=== PATIENT | female | born 1950 | race Caucasian/White ===

== ENCOUNTER 2018-11-23 07:11 | Emergency (ER) | payer MEDICARE ==
[2018-11-23 07:25] VITALS: TEMP 97.7
[2018-11-23 08:48] LABS: BASO # 0.02 K/mm3 (0.0-2.0); BASO % 0.3 % (0.0-3.0); EOS # 0.1 (0.0-0.7); EOS % 1.2 % (1.5-5.0); HEMOGLOBIN 10.6 g/dL (12.0-16.0); LYMPH # 1.8 (1.2-3.4); LYMPH % 26.2 % (22.0-35.0); MEAN CELL VOLUME 79.7 fl (80.0-105.0); MEAN CORPUSCULAR HEMOGLOBIN 26.2 pg (25.0-35.0); MEAN CORPUSCULAR HGB CONC 32.9 g/dl (31.0-37.0); MEAN PLATELET VOLUME 9.6 fl (7.0-11.0); MONO # 0.4 (0.1-0.6); MONO % 6.1 % (1.0-6.0); RBC 4.04 10^6/uL (3.5-6.1); RED CELL DISTRIBUTION WIDTH 14.1 % (11.5-14.5); WHITE BLOOD COUNT 6.9 10^3/uL (4.5-11.0)
[2018-11-23 09:01] LABS: ALBUMIN 4.2 g/dL (3.0-4.8); CALCIUM 10.9 mg/dL (8.4-10.5)
--- NOTE | 2018-11-23 09:39 | ED PDOC ---
Arrival/HPI - General Chief Complaint: Lower Extremity Problem/Injury Time Seen by Provider: 11/23/18 07:14 Historian: Patient - History of Present Illness Narrative History of Present Illness (Text): 11/23/18 07:14 Nivia Man is a 68 year old female, with a past medical history of hypertension controlled with medication, who presents to the emergency department complaining of left ankle swelling since yesterday. Patient informs pain is worsened when ambulating. Patient notes history of this pain for around 1 year. Patient reports seeking medical attention but does not remember what was said. Patient denies trauma, fall, calf tenderness, headache, fever, chills, cough, nausea, vomiting, diarrhea, visual changes, neck pain, dysuria, hematuria, frequency, bowel/bladder incontinence or retention, abdominal pain, or any other complaint. Time/Duration: 24 hours Symptom Onset: Gradual Symptom Course: Unchanged Activities at Onset: Light Context: Home Past Medical History - Provider Review Nursing Documentation Reviewed: Yes - Infectious Disease Hx of Infectious Diseases: None - Cardiac Hx Cardiac Disorders: Yes Hx Hypertension: Yes - Pulmonary Hx Respiratory Disorders: No - Neurological Hx Neurological Disorder: No - HEENT Hx HEENT Disorder: No - Renal Hx Renal Disorder: No - Endocrine/Metabolic Hx Endocrine Disorders: No - Hematological/Oncological Hx Blood Disorders: No - Integumentary Hx Dermatological Disorder: No - Musculoskeletal/Rheumatological Hx Musculoskeletal Disorders: No - Gastrointestinal Hx Gastrointestinal Disorders: No - Genitourinary/Gynecological Hx Genitourinary Disorders: No - Psychiatric Hx Psychophysiologic Disorder: No Hx Substance Use: No - Anesthesia Hx Anesthesia: No Family/Social History - Physician Review Nursing Documentation Reviewed: Yes Family/Social History: No Known Family HX Smoking Status: Never Smoked Hx Alcohol Use: No Hx Substance Use: No Allergies/Home Meds Allergies/Adverse Reactions: Allergies No Known Allergies Allergy (Verified 11/23/18 07:21) Home Medications: Home Meds Medication Instructions Recorded Confirmed amLODIPine [Norvasc] 10 mg PO DAILY 11/23/18 11/23/18 Review of Systems - Physician Review All systems were reviewed & negative as marked: Yes - Review of Systems Constitutional: absent: Fevers, Other Eyes: absent: Vision Changes Respiratory: absent: Cough Gastrointestinal: absent: Abdominal Pain, Diarrhea, Nausea, Vomiting, Other (bowel incontinence) Genitourinary Female: absent: Dysuria, Frequency, Hematuria, Other (urinary incontinence) Musculoskeletal: Joint Swelling (left ankle swelling), Other (left ankle pain w/ambulation). absent: Neck Pain Physical Exam Vital Signs Reviewed: Yes Vital Signs Temp Pulse Resp BP Pulse Ox 11/23/18 07:24 97.7 F 60 18 146/80 98 Temperature: Afebrile Blood Pressure: Normal Pulse: Regular Respiratory Rate: Normal Appearance: Positive for: Well-Appearing, Non-Toxic, Comfortable Pain Distress: None Mental Status: Positive for: Alert and Oriented X 3 - Systems Exam Head: Present: Atraumatic, Normocephalic Pupils: Present: PERRL Extroacular Muscles: Present: EOMI Conjunctiva: Present: Normal Mouth: Present: Moist Mucous Membranes Neck: Present: Normal Range of Motion Respiratory/Chest: Present: Clear to Auscultation, Good Air Exchange. No: Respiratory Distress, Accessory Muscle Use Cardiovascular: Present: Regular Rate and Rhythm, Normal S1, S2. No: Murmurs Abdomen: No: Tenderness, Distention, Peritoneal Signs Back: Present: Normal Inspection Upper Extremity: Present: Normal Inspection. No: Cyanosis, Edema Lower Extremity: Present: NORMAL PULSES, Tenderness (left ankle tender to medial and lateral aspects), Temperature Abnormalties (left ankle warm to touch. ), Capillary Refill < 2 s. No: Edema Neurological: Present: GCS=15, CN II-XII Intact, Speech Normal Skin: Present: Warm, Dry, Normal Color. No: Rashes Psychiatric: Present: Alert, Oriented x 3, Normal Insight, Normal Concentration Medical Decision Making ED Course and Treatment: 11/23/18 09:38 Impression: Patient is a 68 year old female who presents to the emergency department complaining of left ankle swelling since yesterday. Patient reports pain is worsened when ambulating. Patient sought medical attention for current complaint but is unsure what was said. Plan: -- Left Ankle X-Ray 3 Views -- US Lower Extremities -- Labs -- Reassess and disposition Prior Visits: Notes and results from previous visits were reviewed. Progress Notes: - Lab Interpretations Lab Results: Total Bilirubin 0.5 mg/dL (0.2-1.3) 11/23/18 08:10 AST 26 U/L (14-36) 11/23/18 08:10 ALT 10 U/L (7-56) 11/23/18 08:10 Alkaline Phosphatase 130 U/L (38-126) H 11/23/18 08:10 Total Protein 8.3 g/dL (5.8-8.3) 11/23/18 08:10 Albumin 4.2 g/dL (3.0-4.8) 11/23/18 08:10 Globulin 4.1 gm/dL 11/23/18 08:10 Albumin/Globulin Ratio 1.0 (1.1-1.8) L 11/23/18 08:10 - RAD Interpretation Narrative RAD Interpretations (Text): 11/23/18 10:41 Left Lower Extremity US shows: FINDINGS: The visualized deep venous system of the left lower extremity is sonographically normal and compressible. Normal wave forms and augmentation are seen. There is no sonographic evidence for deep venous thrombosis in the visualized segments of the left lower extremity. IMPRESSION: 1. No sonographic evidence for deep venous thrombosis in the visualized segments of the left lower extremity. 11/23/18 11:01 Left Ankle X-Ray shows: FINDINGS: BONES: Normal. No fracture. JOINTS: Normal. No osteoarthritis. Ankle mortise maintained. Talar dome intact SOFT TISSUES: Normal. OTHER FINDINGS: None. IMPRESSION: Normal left ankle radiographs. 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 I have reviewed the chart and agree that the record accurately reflects my personal performance of the history, physical exam, medical decision making, and the department course for this patient. I have also personally directed, reviewed, and agree with the discharge instructions and disposition. Disposition/Present on Arrival - Present on Arrival Any Indicators Present on Arrival: No History of DVT/PE: No History of Uncontrolled Diabetes: No Urinary Catheter: No History of Decub. Ulcer: No History Surgical Site Infection Following: None - Disposition Have Diagnosis and Disposition been Completed?: Yes Diagnosis: Foot pain Disposition: HOME/ ROUTINE Disposition Time: 11:15 Patient Problems: Current Active Problems Problem Status Onset Foot pain Acute Condition: GOOD Discharge Instructions (ExitCare): Metatarsalgia (DC) Additional Instructions: NIVIA MAN, thank you for letting us take care of you today. The emergency medical care you received today was directed at your acute symptoms. If you were prescribed any medication, please fill it and take as directed. It may take several days for your symptoms to resolve. Return to the Emergency Department if your symptoms worsen, do not improve, or if you have any other problems. Please contact your doctor or call one of the physicians/clinics you have been referred to that are listed on the Patient Visit Information form that is included in your discharge packet. Bring any paperwork you were given at discharge with you along with any medications you are taking to your follow up visit. Our treatment cannot replace ongoing medical care by a primary care provider outside of the emergency department. Thank you for allowing the [facility] team to be part of your care today. Follow up with your Dr. Theodore (podiatry) this week for re-evaluation and further treatment. Prescriptions: traMADol [Ultram] 50 mg PO Q8 PRN #15 tab PRN Reason: Pain, Severe (8-10) Referrals: Ellen Theodore DPM [Staff Provider] - Follow up with primary Claudia Hazel MD [Primary Care Provider] - Follow up with primary Forms: [employer] (French)
--- NOTE | 2018-11-23 10:45 | US ---
PROCEDURE: Left lower extremity venous US HISTORY: Leg pain and swelling. Evaluate for DVT. PHYSICIAN(S): Kemar Pagan MD. TECHNIQUE: Duplex sonography and color-flow Doppler with graded compression were used to evaluate the deep venous system of the left lower extremity. FINDINGS: The visualized deep venous system of the left lower extremity is sonographically normal and compressible. Normal wave forms and augmentation are seen. There is no sonographic evidence for deep venous thrombosis in the visualized segments of the left lower extremity. IMPRESSION: 1. No sonographic evidence for deep venous thrombosis in the visualized segments of the left lower extremity.
--- NOTE | 2018-11-23 11:05 | RAD ---
Date of service: 11/23/2018 PROCEDURE: Left Ankle Radiographs. HISTORY: left ankle pain swelling COMPARISON: None available. TECHNIQUE: 3 views obtained. FINDINGS: BONES: Normal. No fracture. JOINTS: Normal. No osteoarthritis. Ankle mortise maintained. Talar dome intact SOFT TISSUES: Normal. OTHER FINDINGS: None. IMPRESSION: Normal left ankle radiographs.
--- NOTE | 2018-11-23 11:41 | CP.PCM.CON ---
History of Present Illness - History of Present Illness History of Present Illness: Podiatry consult note - Dr. Theodore 68F with pmhx of HTN seen and [place] [facility] [place]. States that she has had pain in her ankle since Friday. States the pain is constant and does not travel up or down the leg. States most of the pain is on the outside and inside of her ankle and she has pain whenever she moves her ankle up and down or in and out. States she has had similar pain in the past approximately one year ago. Denies n/v/f/c/sob/cp today and has no other complaints. PMHx: HTN PSHx: denies All: NKDA Past Patient History - Infectious Disease Hx of Infectious Diseases: None - Past Social History Smoking Status: Never Smoked - CARDIAC Hx Cardiac Disorders: Yes Hx Hypertension: Yes - PULMONARY Hx Respiratory Disorders: No - NEUROLOGICAL Hx Neurological Disorder: No - HEENT Hx HEENT Problems: No - RENAL Hx Chronic Kidney Disease: No - ENDOCRINE/METABOLIC Hx Endocrine Disorders: No - HEMATOLOGICAL/ONCOLOGICAL Hx Blood Disorders: No - INTEGUMENTARY Hx Dermatological Problems: No - MUSCULOSKELETAL/RHEUMATOLOGICAL Hx Musculoskeletal Disorders: No - GASTROINTESTINAL Hx Gastrointestinal Disorders: No - GENITOURINARY/GYNECOLOGICAL Hx Genitourinary Disorders: No - PSYCHIATRIC Hx Psychophysiologic Disorder: No Hx Substance Use: No - SURGICAL HISTORY Hx Surgeries: No - ANESTHESIA Hx Anesthesia: No Meds Home Medications: Home Medication List Medication Instructions Recorded Confirmed Type traMADol [Ultram] 50 mg PO Q8 PRN #15 tab 11/23/18 Rx Allergies/Adverse Reactions: Allergies Allergy/AdvReac Type Severity Reaction Status Date / Time No Known Allergies Allergy Verified 11/23/18 07:21 Physical Exam - Constitutional Appears: Non-toxic - Head Exam Head Exam: ATRAUMATIC - Extremities Exam Additional comments: LLE focused exam VASC: DP and PT pulses palpable; cap refill <3 seconds to all digits; temp gradient warm to warm; minimal edema noted to the ankle; pedal hairgrowth present DERM: no open lesions or wounds present; no erythema noted to the ankle; skin temp warm, no greater than contralateral ankle ORTHO: pain on palpation of the ankle; pain on ROM in all directions to the ankle; pain on palpation of sinus tarsi; MMT not assessed 2/2 guarding and pain NEURO: gross and protective sensation intact - Neurological Exam Neurological exam: Alert, Oriented x3 - Psychiatric Exam Psychiatric exam: Normal Affect, Normal Mood Results - Vital Signs Recent Vital Signs: Last Vital Signs Temp 97.7 F 11/23/18 07:24 Pulse 57 L 11/23/18 11:13 Resp 16 11/23/18 11:13 BP 116/69 11/23/18 11:13 Pulse Ox 100 11/23/18 11:13 - Labs Result Diagrams: 11/23/18 08:10 11/23/18 08:10 Labs: Laboratory Results - last 24 hr 11/23/18 11/23/18 08:10 08:10 WBC 6.9 RBC 4.04 Hgb 10.6 L Hct 32.2 L MCV 79.7 L MCH 26.2 MCHC 32.9 RDW 14.1 Plt Count 192 MPV 9.6 Neut % (Auto) 66.2 Lymph % (Auto) 26.2 [place] % (Auto) 6.1 H Eos % (Auto) 1.2 L Baso % (Auto) 0.3 Lymph # (Auto) 1.8 [place] # (Auto) 0.4 Eos # (Auto) 0.1 Baso # (Auto) 0.02 Absolute Neuts (auto) 4.54 ESR 90 H Sodium 141 Potassium 4.0 Chloride 108 H Carbon Dioxide 25 Anion Gap 12 BUN 24 H Creatinine 1.7 H Est GFR ( Amer) 36 Est GFR (Non-Af Amer) 30 Random Glucose 102 Calcium 10.9 H Total Bilirubin 0.5 AST 26 ALT 10 Alkaline Phosphatase 130 H Total Protein 8.3 Albumin 4.2 Globulin 4.1 Albumin/Globulin Ratio 1.0 L Assessment & Plan - Assessment and Plan (Free Text) Assessment: 68F with left ankle pain Plan: Patient seen and evaluated Discussed in detail with Dr. Serrato VSGaurav, absent leukocytosis, ESR 90 X-rays reviewed - no acute fractures or disclocations Venous duplex - negative DVT Discussed further imaging, patient amenable to MRI of left ankle Apply boot and encourage nonweightbearing to left ankle, crutch assistance if necessary RICE therapy discussed F/u with Dr. Theodore upon discharge and reevaluate pain, erythema, redness Instructed to return to the ED if pain increases or any severe redness and temperature changes appreciated at the ankle for further testing and treatment Oral abx per medicine Thank you for the consult, will follow with Dr. Theodore on - Date & Time Date: 11/23/18 Time: 11:48
[2018-11-23 13:11] VITALS: BP 112/64; PULSE 72; RESP 18; O2SAT 98
== END 2018-11-23 20:33 | disposition home or self-care (01) ==
LOC: ED 07:11
DX: M79.672 Pain in left foot (principal); I10 Essential (primary) hypertension
CPT/HCPCS: 73610; 80053; 85025; 85651; 86140; 93971; 96374; 99284; J1885

== ENCOUNTER 2019-01-22 16:00 | Outpatient (CLI) | payer MEDICARE | END 2019-01-22 16:01 | disposition home or self-care (01) | LOC: RAD 16:00 ==